=== PATIENT | male | born 1995 | race African-American/Black ===

== ENCOUNTER 2016-06-05 11:08 | Emergency (ER) | payer MEDICAID, SELFPAY ==
[2016-06-05] MEDS ORDERED: KETOROLAC 30 MG/ML VIAL (J1885) As Ordered ONE (13:56)
--- NOTE | 2016-06-05 14:20 | EDDOCDS ---
Physician Documentation [facility] Name: Rodney Pop Age: 20 yrs Sex: Male : 1995 Arrival Date: 06/05/2016 Time: 11:08 Bed Private MD: NO PRIMARY PHYSICIAN, . Disposition: 06/05/16 13:52 Discharged to Home/Self Care. Impression: Low back pain. - Condition is Stable. - Discharge Instructions: Back Pain, Adult. - Prescriptions for Naprosyn 500 mg Oral Tablet - take 1 tablet by ORAL route 2 times per day take with food; 30 tablet. Cyclobenzaprine 10 mg Oral Tablet - take 1 tablet by ORAL route 3 times per day As needed; 15 tablet. - Medication Reconciliation, Local Pharmacy Hours form. - Follow up: Emergency Department; When: As needed; Reason: Worsening of conditions. [facility]: [facility]; When: Call to arrange an appointment; Reason: Wound/Symptom Recheck, Recheck today's complaints, Worsening of conditions, Continuance of care, To establish care. - Problem is an acute exacerbation. - Symptoms are unchanged. Historical: - Allergies: No known drug Allergies; - Home Meds: 1. none - PMHx: Asthma; - PSHx: none; - Social history: Smoking status: Patient states former smoker of tobacco. No barriers to communication noted, The patient speaks fluent Jordanian. - Family history: Not pertinent. - : The pt / caregiver states he / she is not on anticoagulants. Home medication list is obtained from the patient. - Exposure Risk Screening:: None identified. Vital Signs: 06/05 11:09 BP 103 / 62; Pulse 85; Resp 18; Temp 97.5(O); Pulse Ox 99% ; Weight 72.57 kg / 159.99 cmb lbs; Height 6 ft. 2 in. (187.96 cm); Pain 7/10; 14:09 BP 137 / 69; Pulse 58; Resp 16; Temp 95.8(O); Pulse Ox 98% ; Pain 8/10; jrd 11:09 Body Mass Index 20.54 (72.57 kg, 187.96 cm) cmb MDM: 13:52 Financial registration complete. lg 13:55 ketorolac 60 mg IM once ordered. cc10 13:56 [facility] [place] Payment Agreement was scanned into [employer] and attached to record. lg Administered Medications: 14:02 Drug: ketorolac 60 mg [ketorolac 30 mg/mL (1 mL) injection solution (2 mL)] Route: IM; mk4 Site: left gluteus; 14:17 Follow up: Response: Pain is decreased mk4 Signatures: Iesha Mcgowan, JOSE RN kcs Yamile To, Campbell Reg lg Valeria Jean RN RN mk4 Toni Brennan, SHORTY PAMariah cc10 The chart was reviewed and I authenticate all verbal orders and agree with the evaluation and treatment provided.Attachments: 13:56 [facility] [place] Payment Agreement lg MTDD
--- NOTE | 2016-06-05 14:20 | EDDOCDS ---
Nurse's Notes [facility] Name: Rodney Pop Age: 20 yrs Sex: Male : 1995 Arrival Date: 06/05/2016 Time: 11:08 Bed PR Private MD: NO PRIMARY PHYSICIAN, . Diagnosis: Low back pain Presentation: 06/05 11:20 Presenting complaint: Patient states: he has had back and abdominal pain for a couple kcs of weeks - thought it was from drinking - not getting any better - can't bend over, take full breaths, cough or sneeze. Risk factors: the patient reports not having a history of previous torsion. Adult Sepsis Screening: The patient does not have new or worsening altered mentation. Patient's respiratory rate is less than 22. Systolic blood pressure is greater than 100. Patient has a qSOFA score of 0- Negative Sepsis Screen. Suicide/Homicide risk assessment- the patient denies having any suicidal and/or homicidal ideations and does not present with any other emotional, behavioral or mental health complaints. Status: Patient is not a swimming pool servicer or dependent. Transition of care: patient was not received from another setting of care. 11:20 Acuity: ELIZA Level 3 kcs 11:20 Method Of Arrival: Walkin/Carried/Asstd kcs Triage Assessment: 11:22 General: Appears comfortable, well developed, well nourished, well groomed, Behavior is kcs cooperative, flat, weepy. Pain: Location: entire back and epigasrric area Pain currently is 7 out of 10 on a pain scale. HIV screening NA for this visit Offered previously. Neurological: Level of Consciousness is awake, alert. Respiratory: Airway is patent Respiratory effort is even, unlabored, Respiratory pattern is regular, symmetrical. Derm: Skin is intact, is healthy with good turgor, Skin is dry, Skin is normal. Historical: - Allergies: No known drug Allergies; - Home Meds: 1. none - PMHx: Asthma; - PSHx: none; - Social history: Smoking status: Patient states former smoker of tobacco. No barriers to communication noted, The patient speaks fluent Central African. - Family history: Not pertinent. - : The pt / caregiver states he / she is not on anticoagulants. Home medication list is obtained from the patient. - Exposure Risk Screening:: None identified. Screenin:03 Screening information is obtained from the patient. Fall risk: No risks identified. mk4 Assistance ADL's: requires no assistance with activities of daily living. Abuse/DV Screen: The patient / caregiver reports he/she is: not in a situation that causes fear, pain or injury. Nutritional screening: No deficits noted. Advance Directives: Currently, there is no health care proxy. There is no active DNR order. There is no living will. There is no Power of Warehouse Packaging Supervisor. home support is adequate. Assessment: 14:03 General: Appears in no apparent distress. General: pt requesting im injection .... mk4 Respiratory: Airway is patent Respiratory effort is even, unlabored, Respiratory pattern is. GI: Abdomen is flat, non- distended Bowel sounds present X 4 quads. Abd is soft and non tender. Derm: Skin is intact, is healthy with good turgor. 14:16 General: Appears in no apparent distress, comfortable. mk4 Vital Signs: 11:09 BP 103 / 62; Pulse 85; Resp 18; Temp 97.5(O); Pulse Ox 99% ; Weight 72.57 kg; Height 6 cmb ft. 2 in. (187.96 cm); Pain 7/10; 14:09 BP 137 / 69; Pulse 58; Resp 16; Temp 95.8(O); Pulse Ox 98% ; Pain 8/10; jrd 11:09 Body Mass Index 20.54 (72.57 kg, 187.96 cm) cmb Vitals: 11:09 Log In Time: June 05, 2016 at 11:08. cmb ED Course: 11:09 Patient visited by Kalie Rodriguez. cmb 11:09 NO PRIMARY PHYSICIAN, . is Private Physician. cmb 11:09 Patient moved to Waiting cmb 11:10 Patient moved to Pre RCE cmb 11:21 Triage Initiated kcs 12:19 Patient moved to Triage 2 jrd 12:54 Patient visited by Valeria Jean RN. mk4 13:46 Toni Brennan PA-C is PHCP. cc10 13:46 De Schwartz MD is Attending Physician. cc10 13:46 Patient visited by Toni Brennan PA-C. cc10 13:46 Patient visited by Toni Brennan PA-C. cc10 13:51 [facility] is Referral Physician. cc10 13:55 Patient moved to mk4 13:56 [facility] Payment Agreement was scanned into [employer] and attached to record. 14:03 The patient / caregiver is instructed regarding the plan of care and ED course. mk4 14:03 No IV's were initiated during this patient's visit. No procedures done that require mk4 assistance. 14:09 Patient visited by Tayo Cardenas PCA. jrd Administered Medications: 14:02 Drug: ketorolac 60 mg [ketorolac 30 mg/mL (1 mL) injection solution (2 mL)] Route: IM; mk4 Site: left gluteus; 14:17 Follow up: Response: Pain is decreased mk4 Order Results: There are currently no results for this order. Outcome: 13:52 Discharge ordered by Provider. cc10 14:16 Discharge Assessment: Patient awake, alert and oriented x 3. No cognitive and/or mk4 functional deficits noted. Patient verbalized understanding of disposition instructions. Patient awake and alert. Discharge Assessment: patient administered narcotics - no. The following High Risk Discharge criteria are identified: None. Condition: good Condition: stable. No special radiology studies were completed. Property sent home with patient. 14:19 Patient left the ED. mk4 Signatures: Iesha Mcgowan, RN RN Yamile Cheng, Campbell Reg Kalie Gardiner Margaret, RN RN mk4 Coniski, Colin, PA-C PA-C [facility] Tayo Cardenas PCA PCA jrd MTDAj
--- NOTE | 2016-06-07 15:20 | EDDOCDS ---
Nurse's Notes [facility] Name: Rodney Pop Age: 20 yrs Sex: Male : 1995 Arrival Date: 06/05/2016 Time: 11:08 Bed PR Private MD: NO PRIMARY PHYSICIAN, . Diagnosis: Low back pain Presentation: 06/05 11:20 Presenting complaint: Patient states: he has had back and abdominal pain for a couple kcs of weeks - thought it was from drinking - not getting any better - can't bend over, take full breaths, cough or sneeze. Risk factors: the patient reports not having a history of previous torsion. Adult Sepsis Screening: The patient does not have new or worsening altered mentation. Patient's respiratory rate is less than 22. Systolic blood pressure is greater than 100. Patient has a qSOFA score of 0- Negative Sepsis Screen. Suicide/Homicide risk assessment- the patient denies having any suicidal and/or homicidal ideations and does not present with any other emotional, behavioral or mental health complaints. Status: Patient is not a waiter/waitress room service or dependent. Transition of care: patient was not received from another setting of care. 11:20 Acuity: ELIZA Level 3 kcs 11:20 Method Of Arrival: Walkin/Carried/Asstd kcs Triage Assessment: 11:22 General: Appears comfortable, well developed, well nourished, well groomed, Behavior is kcs cooperative, flat, weepy. Pain: Location: entire back and epigasrric area Pain currently is 7 out of 10 on a pain scale. HIV screening NA for this visit Offered previously. Neurological: Level of Consciousness is awake, alert. Respiratory: Airway is patent Respiratory effort is even, unlabored, Respiratory pattern is regular, symmetrical. Derm: Skin is intact, is healthy with good turgor, Skin is dry, Skin is normal. Historical: - Allergies: No known drug Allergies; - Home Meds: 1. none - PMHx: Asthma; - PSHx: none; - Social history: Smoking status: Patient states former smoker of tobacco. No barriers to communication noted, The patient speaks fluent Angolan. - Family history: Not pertinent. - : The pt / caregiver states he / she is not on anticoagulants. Home medication list is obtained from the patient. - Exposure Risk Screening:: None identified. Screenin:03 Screening information is obtained from the patient. Fall risk: No risks identified. mk4 Assistance ADL's: requires no assistance with activities of daily living. Abuse/DV Screen: The patient / caregiver reports he/she is: not in a situation that causes fear, pain or injury. Nutritional screening: No deficits noted. Advance Directives: Currently, there is no health care proxy. There is no active DNR order. There is no living will. There is no Power of Heating And Ventilating Tender. home support is adequate. Assessment: 14:03 General: Appears in no apparent distress. General: pt requesting im injection .... mk4 Respiratory: Airway is patent Respiratory effort is even, unlabored, Respiratory pattern is. GI: Abdomen is flat, non- distended Bowel sounds present X 4 quads. Abd is soft and non tender. Derm: Skin is intact, is healthy with good turgor. 14:16 General: Appears in no apparent distress, comfortable. mk4 Vital Signs: 11:09 BP 103 / 62; Pulse 85; Resp 18; Temp 97.5(O); Pulse Ox 99% ; Weight 72.57 kg; Height 6 cmb ft. 2 in. (187.96 cm); Pain 7/10; 14:09 BP 137 / 69; Pulse 58; Resp 16; Temp 95.8(O); Pulse Ox 98% ; Pain 8/10; jrd 11:09 Body Mass Index 20.54 (72.57 kg, 187.96 cm) cmb Vitals: 11:09 Log In Time: June 05, 2016 at 11:08. cmb ED Course: 11:09 Patient visited by Kalie Rodriguez. cmb 11:09 NO PRIMARY PHYSICIAN, . is Private Physician. cmb 11:09 Patient moved to Waiting cmb 11:10 Patient moved to Pre RCE cmb 11:21 Triage Initiated kcs 12:19 Patient moved to Triage 2 jrd 12:54 Patient visited by Valeria Jean RN. mk4 13:46 Toni Brennan PA-C is PHCP. cc10 13:46 De Schwartz MD is Attending Physician. cc10 13:46 Patient visited by Toni Brennan PA-C. cc10 13:46 Patient visited by Toni Brennan PA-C. cc10 13:51 [facility] is Referral Physician. cc10 13:55 Patient moved to PR mk4 13:56 [facility] Payment Agreement was scanned into [employer] and attached to record. lg 14:03 The patient / caregiver is instructed regarding the plan of care and ED course. mk4 14:03 No IV's were initiated during this patient's visit. No procedures done that require mk4 assistance. 14:09 Patient visited by Tayo Cardenas PCA. jrd 06/06 09:41 T-Sheet-- Draft Copy was scanned into [employer] and attached to record. gb Administered Medications: 06/05 14:02 Drug: ketorolac 60 mg [ketorolac 30 mg/mL (1 mL) injection solution (2 mL)] Route: IM; mk4 Site: left gluteus; 14:17 Follow up: Response: Pain is decreased mk4 Order Results: There are currently no results for this order. Outcome: 13:52 Discharge ordered by Provider. cc10 14:16 Discharge Assessment: Patient awake, alert and oriented x 3. No cognitive and/or mk4 functional deficits noted. Patient verbalized understanding of disposition instructions. Patient awake and alert. Discharge Assessment: patient administered narcotics - no. The following High Risk Discharge criteria are identified: None. Condition: good Condition: stable. No special radiology studies were completed. Property sent home with patient. 14:19 Patient left the ED. 4 Signatures: Iesha Mcgowan, RN RN [facility] Hedy Pennington, Reg Reg gb Yamile To, Reg Reg lg Kalie Rodriguez Margaret, RN RN mk4 Coniski, Colin, PA-C PA-C cc Tayo Cardenas PCA PCA jrd Chart Complete MTDD
--- NOTE | 2016-06-07 15:20 | EDDOCDS ---
Physician Documentation [facility] Name: Rodney Pop Age: 20 yrs Sex: Male : 1995 Arrival Date: 06/05/2016 Time: 11:08 Bed Private MD: NO PRIMARY PHYSICIAN, . Disposition: 06/05/16 13:52 Discharged to Home/Self Care. Impression: Low back pain. - Condition is Stable. - Discharge Instructions: Back Pain, Adult. - Prescriptions for Naprosyn 500 mg Oral Tablet - take 1 tablet by ORAL route 2 times per day take with food; 30 tablet. Cyclobenzaprine 10 mg Oral Tablet - take 1 tablet by ORAL route 3 times per day As needed; 15 tablet. - Medication Reconciliation, Local Pharmacy Hours form. - Follow up: Emergency Department; When: As needed; Reason: Worsening of conditions. Follow [facility]: [facility]; When: Call to arrange an appointment; Reason: Wound/Symptom Recheck, Recheck today's complaints, Worsening of conditions, Continuance of care, To establish care. - Problem is an acute exacerbation. - Symptoms are unchanged. Historical: - Allergies: No known drug Allergies; - Home Meds: 1. none - PMHx: Asthma; - PSHx: none; - Social history: Smoking status: Patient states former smoker of tobacco. No barriers to communication noted, The patient speaks fluent Azerbaijani. - Family history: Not pertinent. - : The pt / caregiver states he / she is not on anticoagulants. Home medication list is obtained from the patient. - Exposure Risk Screening:: None identified. Vital Signs: 06/05 11:09 BP 103 / 62; Pulse 85; Resp 18; Temp 97.5(O); Pulse Ox 99% ; Weight 72.57 kg / 159.99 cmb lbs; Height 6 ft. 2 in. (187.96 cm); Pain 7/10; 14:09 BP 137 / 69; Pulse 58; Resp 16; Temp 95.8(O); Pulse Ox 98% ; Pain 8/10; jrd 11:09 Body Mass Index 20.54 (72.57 kg, 187.96 cm) cmb MDM: 13:52 Financial registration complete. lg 13:55 ketorolac 60 mg IM once ordered. cc10 13:56 [facility] [place] was scanned into [employer] and attached to record. 06/06 09:41 T-Sheet-- Draft Copy was scanned into [employer] and attached to record. gb Administered Medications: 06/05 14:02 Drug: ketorolac 60 mg [ketorolac 30 mg/mL (1 mL) injection solution (2 mL)] Route: IM; mk4 Site: left gluteus; 14:17 Follow up: Response: Pain is decreased mk4 Signatures: Iesha Mcgowan RN RN kcs Hedy Pennington, Reg Reg gb Yamile To, Reg Reg lg Valeria Jean RN RN mk4 Toni Brennan, PA-C PA-C cc10 The chart was reviewed and I authenticate all verbal orders and agree with the evaluation and treatment provided.Attachments: 13:56 [facility] [place] Agreement 06/06 09:41 T-Sheet-- Draft Copy gb Chart Complete MTDD
--- NOTE | 2016-06-07 15:20 | EDDOCDS ---
Physician Documentation [facility] Name: Rodney Pop Age: 20 yrs Sex: Male : 1995 Arrival Date: 06/05/2016 Time: 11:08 Bed Private MD: NO PRIMARY PHYSICIAN, . Disposition: 06/05/16 13:52 Discharged to Home/Self Care. Impression: Low back pain. - Condition is Stable. - Discharge Instructions: Back Pain, Adult. - Prescriptions for Naprosyn 500 mg Oral Tablet - take 1 tablet by ORAL route 2 times per day take with food; 30 tablet. Cyclobenzaprine 10 mg Oral Tablet - take 1 tablet by ORAL route 3 times per day As needed; 15 tablet. - Medication Reconciliation, Local Pharmacy Hours form. - Follow up: Emergency Department; When: As needed; Reason: Worsening of conditions. Follow up: [facility]; When: Call to arrange an appointment; Reason: Wound/Symptom Recheck, Recheck today's complaints, Worsening of conditions, Continuance of care, To establish care. - Problem is an acute exacerbation. - Symptoms are unchanged. Historical: - Allergies: No known drug Allergies; - Home Meds: 1. none - PMHx: Asthma; - PSHx: none; - Social history: Smoking status: Patient states former smoker of tobacco. No barriers to communication noted, The patient speaks fluent Puerto Rican. - Family history: Not pertinent. - : The pt / caregiver states he / she is not on anticoagulants. Home medication list is obtained from the patient. - Exposure Risk Screening:: None identified. Vital Signs: 06/05 11:09 BP 103 / 62; Pulse 85; Resp 18; Temp 97.5(O); Pulse Ox 99% ; Weight 72.57 kg / 159.99 cmb lbs; Height 6 ft. 2 in. (187.96 cm); Pain 7/10; 14:09 BP 137 / 69; Pulse 58; Resp 16; Temp 95.8(O); Pulse Ox 98% ; Pain 8/10; jrd 11:09 Body Mass Index 20.54 (72.57 kg, 187.96 cm) cmb MDM: 13:52 Financial registration complete. lg 13:55 ketorolac 60 mg IM once ordered. cc10 13:56 [facility] [place] was scanned into [employer] and attached to record. 06/06 09:41 T-Sheet-- Draft Copy was scanned into [employer] and attached to record. gb Administered Medications: 06/05 14:02 Drug: ketorolac 60 mg [ketorolac 30 mg/mL (1 mL) injection solution (2 mL)] Route: IM; mk4 Site: left gluteus; 14:17 Follow up: Response: Pain is decreased mk4 Signatures: Iesha Mcgowan RN RN kcs Hedy Pennington, Reg Reg gb Yamile To, Reg Reg lg Valeria Jean RN RN mk4 Toni Brennan, PA-C PA-C cc10 The chart was reviewed and I authenticate all verbal orders and agree with the evaluation and treatment provided.Attachments: 13:56 [facility] [place] Agreement 06/06 09:41 T-Sheet-- Draft Copy gb Chart Complete MTDD
== END 2016-06-05 14:19 | disposition home or self-care (01) ==
LOC: M ED 11:08
DX: M54.5 Low back pain (principal); G89.29 Other chronic pain; J45.909 Unspecified asthma, uncomplicated; Z87.891 Personal history of nicotine dependence
CPT/HCPCS: 96372; 99283; J1885

== ENCOUNTER 2017-05-02 21:01 | Emergency (ER) | payer OTHER, SELFPAY ==
[~2017-05-02] VITALS: Ht 188 cm; Wt 69.1 kg
[2017-05-02 21:01] VITALS: BP 148/76
[2017-05-02] MEDS ORDERED: IBUP80TA PO (21:41)
[2017-05-02] MEDS ORDERED: CYCL10TA PO (21:41)
[2017-05-02] MEDS ORDERED: CYCLOBENZAPRINE 10 MG TAB PO ONE (21:45)
[2017-05-02] MEDS ORDERED: IBUPROFEN 800 MG TAB PO ONE (21:45)
== END 2017-05-02 21:48 | disposition home or self-care (01) ==
LOC: M ED 21:01
DX: M62.830 Muscle spasm of back (principal); M54.5 Low back pain; G89.29 Other chronic pain

== ENCOUNTER 2017-06-09 23:28 | Emergency (ER) | payer OTHER ==
[2017-06-09 23:43] LABS: BASO # 0.1 10^3/uL (0.0-0.2); BASO % 0.5 % (0.0-1.0); EOS # 0.2 10^3/uL (0.0-0.50); HEMATOCRIT 42.4 % (42.0-52.0); HEMOGLOBIN 14.3 g/dl (14.0-18.0); IMMATURE GRANULOCYTE # 0.1 10^3/uL (0-0); IMMATURE GRANULOCYTE % 0.3 % (0-0); LYMPH # 3.2 10^3/uL (1.5-6.5); LYMPH % 20.7 % (24.0-44.0); MEAN CORPUSCULAR HEMOGLOBIN 30.6 pg (27.0-33.0); MEAN CORPUSCULAR HGB CONC 33.7 g/dl (32.0-36.5); MEAN CORPUSCULAR VOLUME 90.6 fl (80.0-96.0); MONO # 1.1 10^3/uL (0.0-0.8); MONO % 6.8 % (0.0-5.0); NEUTROPHILS % 70.7 % (36.0-66.0); PLATELET COUNT, AUTOMATED 311 10^3/uL (150-450); RED BLOOD COUNT 4.68 10^6/uL (4.30-6.10); RED CELL DISTRIBUTION WIDTH 13.8 % (11.5-14.5); WHITE BLOOD COUNT 15.5 10^3/uL (4.0-10.0)
[2017-06-09] MEDS: NS 1,000 ML IV (23:45)
[2017-06-09] MEDS ORDERED: ISOVUE-370 76% 100ML VIAL (Q9967) As Ordered (23:51)
[2017-06-09 23:54] LABS: BEDSIDE GLUCOSE 107 MG/DL (70-105)
[2017-06-09 23:55] LABS: INR 1.05; PARTIAL THROMBOPLASTIN TIME 28.1 SECONDS (26.8-37.9); PROTHROMBIN TIME 13.8 SECONDS (12.4-14.5)
[2017-06-10 00:02] LABS: ABG BASE EXCESS 0.1 (-2.0-2.0); ABG HCO3 23.1 MEQ/L (22.0-26.0); ABG O2 SATURATION 98.2 % (95.0-99.0); ABG PARTIAL PRESSURE CO2 32.9 mmHg (35.0-45.0); ABG PARTIAL PRESSURE O2 96.2 mmHg (75.0-100.0); ABG STANDARD HCO3 24.6 MEQ/L (22.0-26.0); ABG TOTAL CO2 24.1 MEQ/L (22.0-29.0); ABG pH (ARTERIAL) 7.465 UNITS (7.350-7.450)
[2017-06-10 00:17] LABS: ALBUMIN 4.3 GM/DL (3.2-5.2); ALKALINE PHOSPHATASE 120 U/L (45-117); ALT/SGPT 20 U/L (12-78); AMYLASE 113 U/L (25-115); ANION GAP 8 MEQ/L (8-16); AST/SGOT 18 U/L (7-37); BILIRUBIN,DIRECT < 0.1 MG/DL (0.0-0.2); BILIRUBIN,TOTAL 0.2 MG/DL (0.2-1.0); BLOOD UREA NITROGEN 13 MG/DL (7-18); CALCIUM LEVEL 8.8 MG/DL (8.5-10.1); CARBON DIOXIDE LEVEL 25 MEQ/L (21-32); CHLORIDE LEVEL 108 MEQ/L (98-107); CK-MB VALUE MASS 1.6 NG/ML (0.0-3.6); CPK CREATINE PHOSPHOKINASE 216 U/L (39-308); CREATININE FOR GFR 1.04 MG/DL (0.70-1.30); ETHYL ALCOHOL (ETHANOL) 0.005 % (0.000-0.010); GLOMERULAR FILTRATION RATE > 60.0 (>60); GLUCOSE, FASTING 102 MG/DL (70-105); LIPASE 290 U/L (73-393); MB/CK RELATIVE INDEX 0.74 (< OR =4); POTASSIUM SERUM 3.7 MEQ/L (3.5-5.1); SODIUM LEVEL 141 MEQ/L (136-145); TOTAL PROTEIN 8.6 GM/DL (6.4-8.2); TROPONIN I < 0.02 NG/ML (< 0.10)
[2017-06-10 01:01] LABS: KETONE, URINE AUTO RFX NEGATIVE (NEGATIVE); LEUKOCYTE ESTERASE UR AUTO RFX NEGATIVE (NEGATIVE); NITRITE, URINE AUTO RFX NEGATIVE (NEGATIVE); RBC, URINE AUTO RFX 1 /HPF (0-3); SPECIFIC GRAVITY UR AUTO RFX 1.021 (1.002-1.035); SQUAM EPITHELIAL CELL UR AURFX 0 /HPF (0-6); WBC, URINE AUTO RFX 1 /HPF (0-3)
[2017-06-10 01:11] LABS: LACTIC ACID SEPSIS PROTOCOL 1.2 MMOL/L (0.4-2.0)
[2017-06-10 01:12] LABS: AMPHETAMINES LEVEL URINE NEGATIVE (NEGATIVE); BARBITURATES URINE NEGATIVE (NEGATIVE); BENZODIAZEPINES URINE POSITIVE (NEGATIVE); CANNABINOIDS URINE POSITIVE (NEGATIVE); COCAINE METABOLITE URINE NEGATIVE (NEGATIVE); METHADONE URINE NEGATIVE (NEGATIVE); OPIATES URINE NEGATIVE (NEGATIVE); PHENCYCLIDINE URINE NEGATIVE (NEGATIVE)
[2017-06-10] MEDS: ACETAMINOPHEN TAB 650MG DOSE (2X325MG) PO (01:25)
[2017-06-10] MEDS: BUPIVACAINE HCL 0.5% 10 ML VIAL SC (01:44)
[2017-06-10] MEDS: LIDOCAINE W/EPINEPHRINE 1% 20ML VIAL SC (01:44)
== END 2017-06-10 02:44 | disposition home or self-care (01) ==
LOC: M ED 23:28
DX: S21.219A Laceration without foreign body of unspecified back wall of thorax without penetration into thoracic cavity, initial encounter (principal); X99.9XXA Assault by unspecified sharp object, initial encounter; Y92.89 Other specified places as the place of occurrence of the external cause
CPT/HCPCS: Q9967

== ENCOUNTER 2017-06-24 11:53 | Emergency (ER) | payer OTHER ==
[2017-06-24] MEDS ORDERED: NEOSPORIN OINT 0.9 GM PKT (FLOOR STOCK) As Ordered (12:50)
== END 2017-06-24 12:57 | disposition home or self-care (01) ==
LOC: M ED 11:53
DX: Z48.02 Encounter for removal of sutures (principal)
CPT/HCPCS: 99282

== ENCOUNTER 2017-07-19 23:16 | Emergency (ER) | payer OTHER | END 2017-07-20 00:04 | disposition home or self-care (01) | LOC: M ED 07-20 00:04 | DX: S01.501D Unspecified open wound of lip, subsequent encounter (principal); X58.XXXD Exposure to other specified factors, subsequent encounter; Y92.89 Other specified places as the place of occurrence of the external cause | CPT/HCPCS: 99282 ==

== ENCOUNTER 2018-02-23 10:44 | Emergency (ER) | payer OTHER | END 2018-02-23 11:57 | disposition home or self-care (01) | LOC: M ED 10:44 | DX: M79.644 Pain in right finger(s) (principal); F17.200 Nicotine dependence, unspecified, uncomplicated | CPT/HCPCS: 73140 ==

== ENCOUNTER 2018-07-20 17:23 | Emergency (ER) | payer OTHER, SELFPAY ==
[~2018-07-20] VITALS: Ht 188 cm; Wt 81.8 kg
[~2018-07-20 17:23] MED LIST: CYCL10TA PO; IBUP-1022 PO; IBUP80TA PO
[2018-07-20] MEDS ORDERED: ACETAMINOPHEN TAB 650MG DOSE (2X325MG) PO ONE (18:00)
[2018-07-20] MEDS ORDERED: ADACEL/BOOSTRIX VACCINE (DIPHTH/PERTUSS/ACELL/TETANUS)0.5ML SYR (90715) IM ONE (18:00)
--- NOTE | 2018-07-20 18:13 | REP ---
Clinical: Blunt trauma to the forehead. Comparison: 05/29/2014 . Findings: The ventricles, sulci, and cisterns are normal in position and appearance. Jean-white differentiation is maintained. No acute intracranial hemorrhage, mass/mass effect, pathology or trauma/injury. No evidence for acute infarction. No extra-axial fluid collection. Calvarium is intact. Paranasal sinuses and mastoid air cells are clear. Small scalp hematomas are identified along the right and left convexities. The a scalp laceration and hematoma along the high left convexity with small foreign body likely representing glass (images 24-26). Impression: No evidence for acute intracranial pathology or trauma/injury. Small bilateral scalp hematomas including high left scalp laceration containing small 5.5 mm foreign body glass fragment. Electronically Signed by Erik Martini MD 07/20/2018 06:05 P
[2018-07-20 18:56] VITALS: BP 99/55
== END 2018-07-20 19:00 | disposition home or self-care (01) ==
LOC: M ED 17:23
DX: S01.01XA Laceration without foreign body of scalp, initial encounter (principal); S60.511A Abrasion of right hand, initial encounter; S50.811A Abrasion of right forearm, initial encounter; Y04.8XXA Assault by other bodily force, initial encounter; Y92.098 Other place in other non-institutional residence as the place of occurrence of the external cause

== ENCOUNTER 2018-07-29 14:56 | Emergency (ER) | payer OTHER, SELFPAY ==
[~2018-07-29] VITALS: Ht 188 cm; Wt 77.3 kg
[2018-07-29 14:56] VITALS: BP 115/54
== END 2018-07-29 15:25 | disposition home or self-care (01) ==
LOC: M ED 14:56
DX: Z48.02 Encounter for removal of sutures (principal)

== ENCOUNTER 2020-01-18 16:45 | Emergency (ER) | payer MEDICAID, OTHER, SELFPAY ==
[~2020-01-18] VITALS: Ht 188 cm; Wt 72.4 kg
[~2020-01-18 16:45] MED LIST changes: +CYCL-707 PO; -CYCL10TA PO
[2020-01-18] MEDS ORDERED: GI COCKTAIL 50ML BTL(HYOSCYAMINE/MAALOX/LIDOCAINE VISCOUS)(1:3:1) PO ONE (17:30)
[2020-01-18] MEDS ORDERED: methylPREDNISolone 125MG 2ML VIAL IV ONE (17:30)
[2020-01-18] MEDS ORDERED: ALBUTEROL 90 MCG/ACT 8GM HFA INHALER INH ONE (17:30)
[2020-01-18 18:00] LABS: BASO # 0.1 10^3/uL (0.0-0.2); BASO % 0.4 % (0.0-1.0); EOS # 0.1 10^3/uL (0.0-0.5); EOS % 0.9 % (0.0-3.0); HEMATOCRIT 44.8 % (42.0-52.0); HEMOGLOBIN 15.5 g/dl (13.5-17.5); LYMPH # 1.9 10^3/uL (1.5-5.0); LYMPH % 14.1 % (24.0-44.0); MEAN CORPUSCULAR HEMOGLOBIN 31.2 pg (27.0-33.0); MEAN CORPUSCULAR HGB CONC 34.6 g/dl (32.0-36.5); MEAN CORPUSCULAR VOLUME 90.1 fl (80.0-96.0); MONO # 0.8 10^3/uL (0.0-0.8); NEUTROPHILS # 10.3 10^3/uL (1.5-8.5); NEUTROPHILS % 78.3 % (36.0-66.0); PLATELET COUNT, AUTOMATED 301 10^3/uL (150-450); RED BLOOD COUNT 4.97 10^6/uL (4.30-6.10); WHITE BLOOD COUNT 13.2 10^3/uL (4.0-10.0)
[2020-01-18 18:40] LABS: CK-MB VALUE MASS < 1.0 NG/ML (<3.6); CPK CREATINE PHOSPHOKINASE 196 U/L (39-308); MB/CK RELATIVE INDEX 0.51 (< OR =4); TROPONIN I < 0.02 NG/ML (< 0.10)
[2020-01-18] MEDS ORDERED: OMEP40CA97 PO (19:11)
[2020-01-18] MEDS ORDERED: OMEPRAZOLE 20 MG CAP PO ONE (19:15)
[2020-01-18] MEDS ORDERED: KETOROLAC 30 MG/ML 1ML VIAL IV ONE (19:30)
[2020-01-18] MEDS ORDERED: ISOVUE-370 76% 100ML VIAL As Ordered ONE (19:55)
[2020-01-18] MEDS ORDERED: PROAAER10 INH (21:25)
[2020-01-18 21:34] VITALS: BP 123/62
--- NOTE | 2020-01-25 17:26 | REP ---
PORTABLE CHEST X-RAY: SITTING AP VIEW HISTORY: Shortness of breath and chest pain. COMPARISON: 06/10/2017. FINDINGS: The lungs are symmetrically aerated and clear. The pleural angles are sharp. Heart size is normal. Mediastinal contours are unremarkable. Pulmonary vasculature is not increased. No bony abnormality is appreciated. IMPRESSION: Negative portable chest x-ray. MTDD
--- NOTE | 2020-01-25 17:28 | REP ---
CT PULMONARY ANGIOGRAM WITH INTRAVENOUS (IV) CONTRAST HISTORY: Shortness of breath and chest pain. Preliminary report is provided at the time of exam by [facility]. CT CONTRAST DOSE: 75 mL of intravenous Isovue-[address] FINDINGS: There is good opacification of the pulmonary arterial tree. There is no filling defect or vessel cutoff to suggest pulmonary embolus. The thoracic aorta enhances homogeneous without evidence of aneurysm or dissection. It is normal in caliber. The lung medina are clear. There is no evidence of mass or adenopathy. No pleural or pericardial effusion is seen. The visualized upper abdominal structures are unremarkable. No bony abnormality. IMPRESSION: There is no CT evidence of pulmonary embolus. No acute disease. MTDD
--- NOTE | 2020-02-01 14:49 | ECGEPIP ---
[facility] - ED Test Date: 2020-01-18 Pat Name: NEENA ROMERO Department: Room: - Gender: Male Solution Analyst: katharine : 1995 Requested By: AMILCAR Caba PA-C Order Number: [id number] Reading MD: Christina Fenton Measurements Intervals Pax Rate: 62 P: 80 [place]: 174 QRS: 91 QRSD: 99 T: 69 QT: 355 QTc: 363 Interpretive Statements SINUS RHYTHM BORDERLINE RIGHT AXIS DEVIATION ST ELEVATION, PROBABLY EARLY REPOLARIZATION BORDERLINE ECG
== END 2020-01-18 21:42 | disposition home or self-care (01) ==
LOC: M ED 16:45
DX: R06.02 Shortness of breath (principal); R07.89 Other chest pain; J45.909 Unspecified asthma, uncomplicated; F17.200 Nicotine dependence, unspecified, uncomplicated; F12.10 Cannabis abuse, uncomplicated
CPT/HCPCS: 71045; 71275; 80047; 82550; 82553; 85025; 85379; 93005; 96374; 96375; 99284; J1885; J2930; Q9967; U0002

== ENCOUNTER 2025-01-20 19:44 | Emergency (ER) | payer OTHER ==
[~2025-01-20] VITALS: Ht 190.5 cm; Wt 74.7 kg
[~2025-01-20 19:44] MED LIST changes: -IBUP-1022 PO; +IBUP600T42 PO; +OMEP40CA4 PO; +PROAAER10 INH
[2025-01-20 21:03] LABS: BASO # 0.1 10^3/uL (0.0-0.2); BASO % 0.6 % (0.0-1.0); EOS # 0.2 10^3/uL (0.0-0.5); EOS % 2.6 % (0.0-3.0); LYMPH # 2.1 10^3/uL (1.5-5.0); LYMPH % 25.7 % (24.0-44.0); MONO # 0.8 10^3/uL (0.0-0.8); MONO % 10.0 % (2.0-8.0); NEUTROPHILS # 5.0 10^3/uL (1.5-8.5); NEUTROPHILS % 61.0 % (36.0-66.0); PLATELET COUNT, AUTOMATED 316 10^3/uL (150-450)
[2025-01-20 21:27] LABS: ALT/SGPT 20 U/L (7.0-40); AST/SGOT 25 U/L (<34); CALCIUM LEVEL 9.2 MG/DL (8.5-10.1); CARBON DIOXIDE LEVEL 28 MMOL/L (20-31); CHLORIDE LEVEL 103 MMOL/L (98-107); CREATININE FOR GFR 1.04 MG/DL (0.70-1.30); GLOMERULAR FILTRATION RATE > 90.0 (>60); POTASSIUM SERUM 4.5 MMOL/L (3.5-5.1); SODIUM LEVEL 140 MMOL/L (136-145)
[2025-01-20 21:42] VITALS: BP 149/69; TEMP 98.1; O2SAT 99
== END 2025-01-20 23:47 | disposition left against medical advice (07) ==
LOC: M ED 19:44
DX: Z53.21 Procedure and treatment not carried out due to patient leaving prior to being seen by health care provider (principal)